=== PATIENT | female | born 1985 | race Caucasian/White ===

== ENCOUNTER 2016-09-17 12:25 | Emergency (ER) | payer OTHER, MEDICAID ==
[~2016-09-17] VITALS: Ht 157.5 cm; Wt 40.0 kg
[~2016-09-17 12:25] MED LIST: FLUC150T PO; INFL100P IV; MACR100C2 PO; NORG1TAB29 PO; OMPR20CCR PO; TRI-TAB PO
[2016-09-17 12:28] VITALS: BP 103/74; PULSE 104; RESP 16; TEMP 98.1; O2SAT 97
--- NOTE | 2016-09-17 12:38 | PD ---
HPI . scalp itching and pain for several days Chief Complaint: Pain: Acute or Chronic Time Seen by Provider: 12:38 Travel History International Travel<30 days: No Contact w/Intl Traveler<30days: No Traveled to known affect area: No History of Present Illness HPI 31 yr old female with ulcerative colitis, depression, anxiety and gastritis here with c/o left facial/scalp itching and mild pain. Patient says she recently noticed her left post and pre auricular lymph nodes were swollen and went to her primary care doctor. She was told she had OE and given ofloxacin. She also had some scalp itching at that point and was told that she had a yeast infection in her hair and took some diflucan. Today she decided to come to the ED because the itching had worsened and she developed some mild pain at that area. She points to her left frontal portion of her head/scalp and left forehead above her eyebrow. She says it is somewhat painful, but more itchy that anything. She denies any visual changes or eye pain. PFSH Past Medical History Hx Anticoagulant Therapy: No Autoimmune Disease: No Anxiety: Yes Depression: Yes Cancer: No Cardiovascular Problems: No Cerebrovascular Accident: No Diabetes: No Diminished Hearing: No Endocrine: No Gastrointestinal Disorders: Yes (ULCERATIVE COLITIS, IBS , AND GASTRITIS) GERD: Yes (ACID REFLUX) Genitourinary: Yes Headaches: Yes Immune Disorder: No Implanted Vascular Access Dvce: No Kidney Stones: Yes Musculoskeletal: No Neurologic: Yes Psychiatric: Yes Reproductive: Yes (cysts on ovaries) Respiratory: No Immunizations Current: Yes Migraines: Yes Seizures: No Thyroid Disease: No Ulcer: Yes (ulcerative colitis) ?: Not : 2 Para: 2 Past Surgical History Other Surgery: No Social History Alcohol Use: No Tobacco Use: No Substance Use: No Allergies-Medications (Allergen,Severity, Reaction): Coded Allergies: Asacol (Verified Allergy, Severe, 09/17/16) Reported Meds & Prescriptions Reported Meds & Active Scripts Active Acyclovir 800 Mg Tab 800 Mg PO 5 TIMES A DAY 7 Days Low-Ogestrel (Norgestrel-Ethinyl Estradiol) 0.3-30 Mg-Mcg Tab 1 Tab PO DAILY Macrobid (Nitrofurantoin Monoh/Nitrofur Macro) 100 Mg Cap 100 Mg PO BID Reported Tri-Sprintec (Norgestimate-Ethinyl Estradiol) 0.18/0.215/0.25 Mg-35 Mcg Tab Unknown Dose PO DAILY Prilosec (Omeprazole) 20 Mg Cap 20 Mg PO DAILY Fluconazole 150 Mg Tab 150 Mg PO ONCE Remicade Inj (Infliximab) 100 Mg Inj 100 Mg IV WEEKLY EVERY 8 WEEKS Review of Systems General / Constitutional: No: Fever Eyes: No: Visual changes HENT: No: Headaches Cardiovascular: No: Chest Pain or Discomfort Respiratory: No: Shortness of Breath Gastrointestinal: No: Abdominal Pain Genitourinary: No: Dysuria Musculoskeletal: No: Pain Skin: Positive Rash, Positive Itching (left forehead/scalp) Neurologic: No: Weakness Psychiatric: No: Depression Endocrine: No: Polydipsia Hematologic/Lymphatic: No: Easy Bruising Physical Exam Narrative GENERAL: well nourished, well developed, in no signs of distress HEENT: normocephalic, atraumatic, conjunctiva clear without any lesions, fluorescein stain negative, + post and preauricular lymphadenopathy SKIN: + blister like lesions on left side of scalp and forehead, eye is spared NECK: supple, no lymphadenopathy RESP: CTAB, no rales or rhonchi CARD: RRR, s1 and s2, no rubs, murmur or gallop ABD: soft, nt, nd, normoactive bowel sounds BACK: no spinal deformities PSYCH: AAOX3, normal affect Data Data Last Documented VS Vital Signs Date Time Temp Pulse Resp B/P Pulse Ox O2 Delivery O2 Flow Rate FiO2 09/17/16 13:09 96 16 99 09/17/16 12:28 98.1 103/74 MDM Medical Decision Making Medical Screen Exam Complete: Yes Emergency Medical Condition: Yes Differential Diagnosis herpes zoster, contact dermatitis, less likely cellulitis Narrative Course 31 yr old female with ulcerative colitis, depression, anxiety and gastritis here with c/o left facial/scalp itching and mild pain. Patient says she recently noticed her left post and pre auricular lymph nodes were swollen and went to her primary care doctor. She was told she had OE and given ofloxacin. She also had some scalp itching at that point and was told that she had a yeast infection in her hair and took some diflucan. Today she decided to come to the ED because the itching had worsened and she developed some mild pain at that area. She points to her left frontal portion of her head/scalp and left forehead above her eyebrow. She says it is somewhat painful, but more itchy that anything. She denies any visual changes or eye pain. Patient seen and examined. + shingles in left frontal/forehead area fluorescein staining negative Recommend acyclovir. Advised that should see ophthalmology. Advised if any worsening eye pain to go to nearest ED. Patient verbalized understanding of instructions, questions were answered, and thanked me for their care. I advised them if their condition worsens, please return to the nearest emergency room for further care. Diagnosis Primary Impression: Herpes zoster Qualified Code: B02.9 - Herpes zoster without complication Referrals: [facility] Patient Instructions: General Instructions, Shingles (ED) Additional Instructions: Please follow up with your primary care provider and let them know that you have shingles. Please see an eye doctor to make sure you do not have an eye involvement. We checked today and did not see any evidence of eye issues. Take medications as prescribed. If you develop eye pain or worsening of sxs, please go to the nearest emergency department. Med/Other Pt SpecificInfo: Prescription(s) given Scripts Acyclovir 800 Mg [id number] Mg PO 5 TIMES A DAY 7 Days Ref 0 Prov:Emily Matta 09/17/16 Disposition: 01 DISCHARGE HOME Condition: Stable Emily Matta Sep 17, 2016 12:38
[2016-09-17] MEDS ORDERED: ACYC800T PO (12:49)
[2016-09-17] MEDS ORDERED: PRIL20CA9 PO (13:01)
[2016-09-17] MEDS ORDERED: TRI-TAB PO (13:01)
[2016-09-17] MEDS ORDERED: INFL100P IV (13:01)
[2016-09-17] MEDS ORDERED: FLUC150T PO (13:01)
== END 2016-09-17 13:09 | disposition home or self-care (01) ==
LOC: PHEFT 12:25
DX: B02.9 Zoster without complications (principal); F41.8 Other specified anxiety disorders; Z87.442 Personal history of urinary calculi
CPT/HCPCS: 99282